=== PATIENT | female | born 1960 | race Caucasian/White ===

== ENCOUNTER 2020-05-26 13:47 | Outpatient (CLI) | payer BC, SELFPAY | END 2020-05-26 13:48 | disposition home or self-care (01) | LOC: ANHCOVIDVC 13:47 | PROVIDERS: PCP Internal Medicine | DX: Z23 Encounter for immunization (principal) | CPT/HCPCS: 0001A; 91300 ==

== ENCOUNTER 2020-06-16 13:44 | Outpatient (CLI) | payer BC, SELFPAY | END 2020-06-16 13:45 | disposition home or self-care (01) | LOC: ANHCOVIDVC 13:45 | PROVIDERS: PCP Internal Medicine | DX: Z23 Encounter for immunization (principal) | CPT/HCPCS: 0002A; 91300 ==